=== PATIENT | female | born 2000 | race Caucasian/White ===

== ENCOUNTER 2022-02-01 13:10 | Outpatient (CLI) | payer OTHER, SELFPAY ==
--- NOTE | 2022-02-01 14:00 | CRLHL7_ITS ---
For Patients: As a result of the Century Cures Act, medical imaging exams and procedure reports are released immediately into your electronic medical record. You may view this report before your referring provider. If you have questions, please contact your health care provider. Indication: INTRA ABDOMINAL AND PELVIC SWELLING. HX OF ENDOMETRIOSIS Technique: Postcontrast CT abdomen and pelvis. Oral water. 62 cc Isovue 370 intravenous contrast. Please note that all CT scans at this facility use dose modulation, iterative reconstruction, and/or weight-based dosing when appropriate to reduce radiation dose to as low as reasonably achievable. Comparison: None Findings: Lung bases clear. Normal liver and gallbladder. Normal spleen and pancreas. Normal adrenal glands and kidneys. No free air, free fluid, abscess or adenopathy. IUD within the endometrial canal. Bladder normal. Normal ureters. 2.9 cm right ovarian cyst. No bowel obstruction. No diverticulitis or abdominal wall hernia. Normal appendix. Osseous structures normal. Impression: Normal CT abdomen and pelvis. No evidence of ascites. Incidental 2.9 cm simple right ovarian cyst. Please note that all CT scans at this facility use dose modulation, iterative reconstruction, and/or weight-based dosing when appropriate to reduce radiation dose to as low as reasonably achievable. Dictated by Parviz Cruz MD @ 02/01/2022 3:23:35 PM (Electronically Signed)
== END 2022-02-01 13:11 | disposition home or self-care (01) ==
PROVIDERS: PCP Family Medicine; Visit Provider Surgery
DX: R19.00 Intra-abdominal and pelvic swelling, mass and lump, unspecified site (principal); N83.201 Unspecified ovarian cyst, right side
CPT/HCPCS: 74177; Q9967

== ENCOUNTER 2022-02-15 11:15 | Outpatient (CLI) | payer OTHER, SELFPAY | END 2022-02-15 11:16 | disposition home or self-care (01) | LOC: NFLDREF 02-19 12:53 | PROVIDERS: PCP Family Medicine; Visit Provider Family Medicine | DX: R35.0 Frequency of micturition (principal); N39.0 Urinary tract infection, site not specified | CPT/HCPCS: 87086 ==

== ENCOUNTER 2022-03-13 07:44 | Outpatient (CLI) | payer OTHER, SELFPAY | END 2022-03-13 07:45 | disposition home or self-care (01) | LOC: NFLDREF 03-15 10:40 | PROVIDERS: PCP Family Medicine; Visit Provider Family Medicine | DX: N39.0 Urinary tract infection, site not specified (principal) | CPT/HCPCS: 87086 ==

== ENCOUNTER 2024-11-26 10:58 | Outpatient (CLI) | payer BC, SELFPAY | END 2024-11-26 10:59 | disposition home or self-care (01) | PROVIDERS: PCP Family Medicine; Visit Provider Nurse Practitioner Family | DX: K13.79 Other lesions of oral mucosa (principal); K12.0 Recurrent oral aphthae | CPT/HCPCS: 82784; 85025; 85651; 86140; 86231; 86258; 86364 ==